=== PATIENT | female | born 1990 | race Two or more races ===

== ENCOUNTER 2018-04-26 09:17 | Emergency (ER) | payer SELFPAY ==
[~2018-04-26] VITALS: Ht 157.5 cm; Wt 55.0 kg
[2018-04-26] MEDS ORDERED: SODIUM CHLORIDE 0.9% 1,000 ML IV ONE (10:04)
[2018-04-26 11:30] LABS: BASOPHILS % 0.3 % (0.0-2.0); EOSINOPHILS % 1.3 % (0.0-5.0); LYMPHOCYTES % 17.3 % (20.0-50.0); MEAN CORPUSCULAR HEMOGLOBIN 29.4 pg (28.0-32.0); MEAN CORPUSCULAR VOLUME 87.7 fL (81.0-99.0); MEAN PLATELET VOLUME 9.2 fl (7.4-10.4); MONOCYTES % 7.3 % (2.0-8.0); NEUTROPHILS % 73.8 % (40.0-76.0); PLATELET 244 x1000/uL (130-400); RED BLOOD CELL COUNT 4.78 mill/uL (4.2-5.4); RED CELL DISTRIBUTION WIDTH 13.1 % (11.6-14.6)
[2018-04-26 11:38] LABS: CHLORIDE 106 mEq/L (98-107); INR 1.1; PROTHROMBIN TIME 11.2 sec (9.1-11.1)
[2018-04-26 12:11] LABS: CLARITY URINE CLEAR (CLEAR); COLOR URINE YELLOW (YELLOW); KETONES URINE NEGATIVE (NEGATIVE); LEUKOCYTE ESTERASE URINE NEGATIVE (NEGATIVE); NITRITE URINE NEGATIVE (NEGATIVE); OCCULT BLOOD URINE 1+ (NEGATIVE); PROTEIN URINE NEGATIVE (NEGATIVE); SPECIFIC GRAVITY URINE 1.008 (1.005-1.030); UROBILINOGEN URINE 0.2 E.U./dL (0.2-1.0)
[2018-04-26] MEDS ORDERED: IBUPROFEN 600MG TABLET PO ONE (13:00)
[2018-04-26 13:22] VITALS: BP 122/72
== END 2018-04-26 13:23 | disposition home or self-care (01) ==
LOC: ER 09:17
DX: R55 Syncope and collapse (principal); R51 Headache; J45.909 Unspecified asthma, uncomplicated
CPT/HCPCS: 36415; 70450; 71045; 80053; 81003; 81025; 85025; 85610; 93005; 96360; 96361; 99284; J7030

== ENCOUNTER 2020-09-10 17:36 | Emergency (ER) | payer MEDICAID ==
[~2020-09-10] VITALS: Ht 160 cm; Wt 69.0 kg
[2020-09-10] MEDS ORDERED: ONDANSETRON HCL 4MG/2ML INJ IV STA (21:56)
[2020-09-10 23:05] LABS: CLARITY URINE CLEAR (CLEAR); COLOR URINE YELLOW (YELLOW); KETONES URINE TRACE (NEGATIVE); LEUKOCYTE ESTERASE URINE NEGATIVE (NEGATIVE); NITRITE URINE NEGATIVE (NEGATIVE); OCCULT BLOOD URINE 2+ (NEGATIVE); PH URINE 6.5 (4.5-8.0); PROTEIN URINE TRACE (NEGATIVE); SPECIFIC GRAVITY URINE 1.021 (1.005-1.030); UROBILINOGEN URINE 0.2 E.U./dL (0.2-1.0)
[2020-09-10] MEDS ORDERED: ONDANSETRON 4MG ODT PO ONE (23:15)
[2020-09-11] MEDS ORDERED: ONDA4TAB5 MT (00:48)
[2020-09-11 01:08] LABS: BASOPHILS % 0.5 % (0.0-2.0); HEMATOCRIT. 38.2 % (36.0-48.0); HEMOGLOBIN. 12.9 g/dL (12.0-16.0); LYMPHOCYTES % 22.4 % (20.0-50.0); MEAN CORPUSCULAR HEMOGLOBIN 29.1 pg (28.0-32.0); MEAN CORPUSCULAR VOLUME 86.3 fL (81.0-99.0); MEAN PLATELET VOLUME 9.8 fl (7.4-10.4); MONOCYTES % 13.4 % (2.0-8.0); NEUTROPHILS % 61.7 % (40.0-76.0); PLATELET 172 x1000/uL (130-400); RED BLOOD CELL COUNT 4.42 mill/uL (4.2-5.4); RED CELL DISTRIBUTION WIDTH 13.4 % (11.6-14.6)
[2020-09-11 01:09] LABS: CHLORIDE 107 mEq/L (98-107)
[2020-09-11 02:18] VITALS: BP 119/76
[2020-09-11 03:04] LABS: B-HCG QUANTITATIVE 872050 mIU/mL (<3)
== END 2020-09-11 02:19 | disposition home or self-care (01) ==
LOC: ER 17:36
DX: O02.0 Blighted ovum and nonhydatidiform mole (principal)
CPT/HCPCS: 36415; 76801; 76817; 80053; 81003; 81025; 83690; 84702; 85025; 99284; Q0162; J2405

== ENCOUNTER 2020-10-27 18:14 | Emergency (ER) | payer MEDICAID ==
[~2020-10-27] VITALS: Ht 160 cm; Wt 68.0 kg
[~2020-10-27 18:14] MED LIST: ONDA4TAB5 MT
[2020-10-27 19:20] VITALS: BP 132/73
[2020-10-27] MEDS ORDERED: ACETAMINOPHEN 325MG TABLET PO ONE (19:45)
[2020-10-27] MEDS ORDERED: CEPH500T MT (21:52)
[2020-10-27] MEDS ORDERED: CEPHALEXIN 250MG CAPSULE PO ONE (22:00)
[2020-10-27] MEDS ORDERED: ACETAMINOPHEN 325MG TABLET PO NR (22:15)
[2020-10-27] MEDS ORDERED: CEPHALEXIN 250MG CAPSULE PO NR (22:15)
== END 2020-10-27 22:47 | disposition home or self-care (01) ==
LOC: ER 18:14
DX: S90.112A Contusion of left great toe without damage to nail, initial encounter (principal); S90.111A Contusion of right great toe without damage to nail, initial encounter; J45.909 Unspecified asthma, uncomplicated; W22.8XXA Striking against or struck by other objects, initial encounter; Y93.89 Activity, other specified; Y92.89 Other specified places as the place of occurrence of the external cause; Y99.8 Other external cause status
CPT/HCPCS: 73630; 99283

== ENCOUNTER 2021-04-10 20:52 | Emergency (ER) | payer MEDICAID, OTHER ==
[~2021-04-10] VITALS: Ht 160 cm; Wt 70.0 kg
[2021-04-10] MEDS: ACETAMINOPHEN 325MG TABLET PO STA (00:29)
[~2021-04-10 20:52] MED LIST changes: +CEPH500T MT
[2021-04-10 21:48] VITALS: BP 128/77
[2021-04-10 22:14] LABS: CLARITY URINE CLEAR (CLEAR); COLOR URINE YELLOW (YELLOW); KETONES URINE NEGATIVE (NEGATIVE); LEUKOCYTE ESTERASE URINE NEGATIVE (NEGATIVE); NITRITE URINE NEGATIVE (NEGATIVE); OCCULT BLOOD URINE 2+ (NEGATIVE); PROTEIN URINE NEGATIVE (NEGATIVE); SPECIFIC GRAVITY URINE 1.011 (1.005-1.030); UROBILINOGEN URINE 0.2 E.U./dL (0.2-1.0)
[2021-04-11 01:05] LABS: BASOPHILS % 0.7 % (0.0-2.0); EOSINOPHILS % 5.3 % (0.0-5.0); HEMATOCRIT. 40.2 % (36.0-48.0); HEMOGLOBIN. 13.2 g/dL (12.0-16.0); LYMPHOCYTES % 27.4 % (20.0-50.0); MEAN CORPUSCULAR HEMOGLOBIN 28.1 pg (28.0-32.0); MEAN CORPUSCULAR VOLUME 85.4 fL (81.0-99.0); MEAN PLATELET VOLUME 8.4 fl (7.4-10.4); NEUTROPHILS % 58.6 % (40.0-76.0); PLATELET 254 x1000/uL (130-400); RED CELL DISTRIBUTION WIDTH 13.6 % (11.6-14.6)
[2021-04-11 01:19] LABS: CHLORIDE 106 mEq/L (98-107)
[2021-04-11 01:43] LABS: B-HCG QUANTITATIVE 9530 mIU/mL (<3)
== END 2021-04-11 03:23 | disposition home or self-care (01) ==
LOC: ER 20:52
DX: O46.91 Antepartum hemorrhage, unspecified, first trimester (principal); Z3A.10 10 weeks gestation of pregnancy
CPT/HCPCS: 36415; 76830; 76856; 80053; 81003; 81025; 84702; 85025; 86850; 86900; 99284

== ENCOUNTER 2024-04-25 17:51 | Emergency (ER) | payer MEDICAID, OTHER ==
[~2024-04-25] VITALS: Ht 160 cm; Wt 59.0 kg
[2024-04-25 18:11] VITALS: O2SAT 100
[2024-04-25] MEDS: KETOROLAC 15MG/ML VIAL IM ONE (21:15)
[2024-04-25] MEDS ORDERED: LIDO700A15 TP (22:57)
[2024-04-25] MEDS ORDERED: NAPR-1176 MT (22:57)
[2024-04-25] MEDS ORDERED: KETOROLAC 15MG/ML VIAL IM NR (23:00)
[2024-04-25 23:15] VITALS: BP 106/67; PULSE 109; RESP 20; TEMP 36.7; O2SAT 100
== END 2024-04-25 23:11 | disposition home or self-care (01) ==
LOC: ER 17:51
DX: S80.01XA Contusion of right knee, initial encounter (principal); J45.909 Unspecified asthma, uncomplicated; Z79.1 Long term (current) use of non-steroidal anti-inflammatories (NSAID); Z79.899 Other long term (current) drug therapy; Z98.890 Other specified postprocedural states; W51.XXXA Accidental striking against or bumped into by another person, initial encounter; Y93.89 Activity, other specified; Y92.89 Other specified places as the place of occurrence of the external cause; Y99.8 Other external cause status
CPT/HCPCS: 99283; 73564; 96372; J1885

== ENCOUNTER 2024-12-16 21:51 | Emergency (ER) | payer MEDICAID ==
[~2024-12-16 21:51] MED LIST changes: +LIDO-53 TP; +NAPR-1176 MT
[2024-12-16 21:52] VITALS: PULSE 114; RESP 20; O2SAT 99
== END 2024-12-16 23:36 | disposition left against medical advice (07) ==
LOC: ER 21:51
DX: S81.811A Laceration without foreign body, right lower leg, initial encounter (principal); X58.XXXA Exposure to other specified factors, initial encounter; Y93.89 Activity, other specified; Y92.89 Other specified places as the place of occurrence of the external cause; Y99.8 Other external cause status
CPT/HCPCS: 99281

== ENCOUNTER 2024-12-17 00:43 | Emergency (ER) | payer MEDICAID, OTHER ==
[~2024-12-17] VITALS: Ht 162.6 cm; Wt 58.0 kg
[2024-12-17 01:11] VITALS: O2SAT 100
[2024-12-17] MEDS: TETANUS, DIPHTHERIA, PERTUSSIS VAC/PF 0.5ML (>10YR OLD) IM ONE (03:00)
[2024-12-17] MEDS: LIDOCAINE HCL 1% 20ML VIAL INFIL ONE (03:00)
[2024-12-17] MEDS: ACETAMINOPHEN 325MG TABLET PO ONE (03:56)
[2024-12-17 04:38] VITALS: BP 124/79; PULSE 104; RESP 18; TEMP 36.9; O2SAT 100
== END 2024-12-17 04:43 | disposition home or self-care (01) ==
LOC: ER 00:57
DX: S81.811A Laceration without foreign body, right lower leg, initial encounter (principal); J45.909 Unspecified asthma, uncomplicated; X58.XXXA Exposure to other specified factors, initial encounter; Y93.89 Activity, other specified; Y92.89 Other specified places as the place of occurrence of the external cause; Y99.8 Other external cause status
CPT/HCPCS: 99283; 81025; 73590; 12002; J2003